=== PATIENT | male | born 1940 | race Asian ===

== ENCOUNTER → 2021-02-04 | Outpatient (CLI) | payer MEDICARE | END | disposition home or self-care (01) | LOC: RADPV 09:00 | PROVIDERS: ATTEND Internal Medicine | DX: Z13.820 Encounter for screening for osteoporosis (principal) | CPT/HCPCS: 77080 ==

== ENCOUNTER → 2023-08-23 01:51 | Emergency (ER) | payer MEDICARE | END | disposition home or self-care (01) | LOC: EMS 01:51 | DX: I10 Essential (primary) hypertension (principal) ==